=== PATIENT | female | born 1965 | race Caucasian/White ===

== ENCOUNTER → 2019-01-20 | Day surgery (SDC) | payer OTHER ==
[~2019-01-20] MED LIST: BUPIVACAINE HCL 0.5 % INJ/PF 30 ML SDV ONE; METHYLPREDNISOLONE ACETATE INJ 80 MG/1 ML VIAL ONE
--- NOTE | 2019-01-20 16:20 | RADIOLOGY REPORT (SQ) ---
EXAM DESCRIPTION: INJECT/ASPIR HIP/SHLDR/KNEE; FLUORO/NEEDLE PLACEMENT COMPLETED DATE/TIME: 01/20/2019 4:07 pm REASON FOR STUDY: M70.62 TROCHANTERIC BURSITIS, LEFT HIP M70.62 TROCHANTERIC BURSITIS, LEFT HIP COMPARISON: None. FLUOROSCOPY TIME: 18 seconds 2 fluoroscopic digital radiographic images saved to PACS. LIMITATIONS: None. PROCEDURE: SITE OF INJECTION: Left trochanteric bursa LOCALIZING CONTRAST TYPE AND DOSE: 1 mL of Omnipaque 300 MEDICATION TYPE AND DOSE: 80 mg of Depo-Medrol, 5 mL of 0.5% bupivacaine Using local anesthesia and sterile technique with fluoroscopic guidance, the needle was advanced into the left trochanteric bursa. Iodinated contrast was injected to verify intraarticular placement. Th is was followed by therapeutic injection of the indicated medications. The needle was removed. Ther e were no immediate complications. Preprocedure pain level: 1/5. Postprocedure pain level: 0/5. IMPRESSION: THERAPEUTIC INJECTION OF THE LEFT TROCHANTERIC BURSA ABOVE. COMMENT: Patient medication list reviewed: Yes- Quality ID# [id number]:Eligible professional attests to doc umenting in the medical record they obtained, updated, or reviewed the patient's current medications. . Quality ID [id number]: Final reports for procedures using fluoroscopy that document radiation exposure mandi clarissa, or exposure time and number of fluorographic images (if radiation exposure indices are not avail able) TECHNICAL DOCUMENTATION: JOB ID: [id number] [employer]- All Rights Reserved Reading location - IP/workstation name: [email or web address]
== END ==
LOC: EDSTATUS 13:00 → RAD 15:19
PROVIDERS: ATTEND Physician Assistant
DX: M70.62 Trochanteric bursitis, left hip (principal)
CPT/HCPCS: 20610; 77002; J3490; J1040